=== PATIENT | male | born 1960 | race Caucasian/White ===

== ENCOUNTER 2023-03-09 12:32 | Emergency (ER) | payer MEDICAID, OTHER ==
[~2023-03-09] VITALS: Ht 185.4 cm; Wt 150.0 kg
[2023-03-09 13:07] VITALS: BP 139/88; PULSE 63; RESP 18; TEMP 97.8; O2SAT 97
--- NOTE | 2023-03-09 13:59 | NUR ---
PT REPORTS TO THE ER MOLE ON LEFT SHOULDER, PT STATES THE MOLE HAS BEEN THERE FOR 10 YEARS.
== END 2023-03-09 15:00 | disposition home or self-care (01) ==
LOC: ER 12:33
DX: L98.9 Disorder of the skin and subcutaneous tissue, unspecified (principal)
CPT/HCPCS: 99281

== ENCOUNTER 2024-07-15 11:36 | Emergency (ER) | payer MEDICARE, MEDICAID ==
[~2024-07-15] VITALS: Ht 185.4 cm; Wt 129.7 kg
[2024-07-15 13:41] VITALS: TEMP 98.6
[2024-07-15 13:51] VITALS: BP 120/68; PULSE 70; RESP 16; O2SAT 98
[2024-07-15] MEDS ORDERED: IBUP-1984 PO (14:08)
== END 2024-07-15 14:19 | disposition home or self-care (01) ==
LOC: ER 11:38
DX: R05.9 Cough, unspecified (principal); Z20.822 Contact with and (suspected) exposure to COVID-19
CPT/HCPCS: 36415; 87502; 87503; 87811; 99283